=== PATIENT | female | born 1950 | race Caucasian/White ===

== ENCOUNTER 2020-11-17 10:44 | Day surgery (SDC) | payer MEDICARE ==
[~2020-11-17] VITALS: Ht 160 cm; Wt 74.0 kg
[~2020-11-17 10:44] MED LIST: ALBU90OI; FENO54 PO; SYMBICORT 80-10.2 GM
[2020-11-17] MEDS ORDERED: METF500 (11:19)
[2020-11-17] MEDS ORDERED: ASPI81CH (11:19)
[2020-11-17] MEDS ORDERED: PRAVASTATIN SOD10 MG (11:20)
--- NOTE | 2020-11-17 13:20 | NUR ---
11/17/20 1320 Araceli Covarrubias PREP PER DR. MENDOZA.
[2020-12-18] MEDS ORDERED: ALBU90OI INH (09:46)
[2020-12-18] MEDS ORDERED: Aspirin EC81 MG PO (09:46)
[2020-12-18] MEDS ORDERED: SYMBICORT 80-10.2 GM (09:47)
[2020-12-18] MEDS ORDERED: PRAVASTATIN SOD40 MG PO (09:47)
[2020-12-18] MEDS ORDERED: METF500C PO (09:47)
== END 2020-11-17 14:01 | disposition home or self-care (01) ==
LOC: ORSCSDS 10:44
PROVIDERS: Internal Medicine Gastroenterology
PROC: 0DBK8ZX Excision of Ascending Colon, Via Natural or Artificial Opening Endoscopic, Diagnostic (ICD-10-PCS; principal; 2020-11-17 12:15)
PROC: 0DBM8ZX Excision of Descending Colon, Via Natural or Artificial Opening Endoscopic, Diagnostic (ICD-10-PCS; principal; 2020-11-17 12:15)
DX: R19.5 Other fecal abnormalities (principal); D12.2 Benign neoplasm of ascending colon; D12.5 Benign neoplasm of sigmoid colon; K57.30 Diverticulosis of large intestine without perforation or abscess without bleeding; K64.1 Second degree hemorrhoids; K64.8 Other hemorrhoids; F17.210 Nicotine dependence, cigarettes, uncomplicated; J44.9 Chronic obstructive pulmonary disease, unspecified; E11.9 Type 2 diabetes mellitus without complications; Z79.84 Long term (current) use of oral hypoglycemic drugs
CPT/HCPCS: 82947; 88305; J2704; J7120

== ENCOUNTER 2020-12-24 11:30 | Day surgery (SDC) | payer MEDICARE ==
[~2020-12-24] VITALS: Ht 160 cm; Wt 71.1 kg
[~2020-12-24 11:30] MED LIST changes: +ALBU90OI INH; +ASPI81CH; +Aspirin EC81 MG PO; +METF500; +METF500C PO; +PRAVASTATIN SOD10 MG; +PRAVASTATIN SOD40 MG PO
== END 2020-12-24 13:35 | disposition home or self-care (01) ==
LOC: ORSCSDS 11:30
PROVIDERS: Internal Medicine Gastroenterology
PROC: 0DBP8ZX Excision of Rectum, Via Natural or Artificial Opening Endoscopic, Diagnostic (ICD-10-PCS; principal; 2020-12-24 12:45)
DX: K92.1 Melena (principal); Z86.010 Personal history of colon polyps; K62.1 Rectal polyp; K57.30 Diverticulosis of large intestine without perforation or abscess without bleeding; K64.8 Other hemorrhoids; K64.4 Residual hemorrhoidal skin tags; F17.210 Nicotine dependence, cigarettes, uncomplicated; Z79.899 Other long term (current) drug therapy; Z79.82 Long term (current) use of aspirin; Z79.84 Long term (current) use of oral hypoglycemic drugs
CPT/HCPCS: 82947; 88305; J2704; J7120

== ENCOUNTER → 2022-03-09 | Outpatient (CLI) | payer MEDICARE ==
[2022-03-09 10:30] LABS: Source, Urine Clean Catch
[2022-03-09 12:56] LABS: Appearance, Urine Clear (Clear); Bilirubin, Urine Neg (Neg); Blood, Urine Neg (Neg); Color, Urine Yellow (P-Yellow); Glucose Qualitative, Urine Neg (Neg); Ketones, Urine Neg (Neg); Leukocyte Esterase, Urine Neg (Neg); Nitrite, Urine Neg (Neg); Protein, Urine Neg (Neg); Specific Gravity, Urine 1.005 (1.003-1.022); Urobilinogen, Urine NORM (Normal)
== END | disposition home or self-care (01) ==
LOC: LAB 10:29 → LAB SHORT 10:29
PROVIDERS: Nurse Practitioner Family
DX: N39.0 Urinary tract infection, site not specified (principal)
CPT/HCPCS: 81003